=== PATIENT | male | born 2000 | race African-American/Black ===

== ENCOUNTER 2024-06-02 16:26 | Inpatient (IN) | payer OTHER ==
[2024-06-02 17:35] VITALS: BMI 21.1
[2024-06-02] MEDS ORDERED: POLYETHYLENE GLYCOL (HEALTHYLAX) 3350 17 GM PACKET PO PRN (18:54)
[2024-06-02] MEDS ORDERED: NALOXONE HCL 0.4 MG/ML VIAL IM PRN (18:54)
[2024-06-02] MEDS ORDERED: BISMUTH SUBSALICYLATE 524 MG/30 ML PO PRN (18:54)
[2024-06-02] MEDS ORDERED: NALOXONE (NARCAN) HCL 4 MG/0.1 ML SPRAY NS PRN (18:54)
[2024-06-02] MEDS ORDERED: MAG HYDROX/AL HYDROX/SIMETH 30 ML UNIT-DOSE CUP PO PRN (18:54)
[2024-06-02] MEDS ORDERED: BENZONATATE 200 MG CAPSULE PO PRN (18:54)
[2024-06-02] MEDS ORDERED: IBUPROFEN 600 MG TABLET (FP) PO PRN (18:54)
[2024-06-02] MEDS ORDERED: IBUPROFEN 400 MG TABLET (FP) PO PRN (18:54)
[2024-06-02] MEDS ORDERED: DICYCLOMINE HCL 10 MG CAPSULE PO PRN (18:54)
[2024-06-02] MEDS ORDERED: ACETAMINOPHEN 325 MG TABLET (FP) PO PRN (18:54)
[2024-06-02] MEDS ORDERED: MAGNESIUM HYDROX 2400MG/30ML ORAL SUSPENSION 30 ML CUP PO PRN (18:54)
[2024-06-02] MEDS ORDERED: P-EPHED 60MG/TRIPROLIDI 2.5MG TABLET PO PRN (18:54)
[2024-06-02] MEDS ORDERED: LOPERAMIDE HCL 2 MG CAPSULE PO PRN (18:54)
[2024-06-02] MEDS ORDERED: NICOTINE POLACRILEX 2 MG LOZENGE BC PRN (18:54)
[2024-06-02] MEDS ORDERED: NICOTINE POLACRILEX 2 MG GUM BUC PRN (18:54)
[2024-06-02] MEDS ORDERED: guaiFENesin 600 MG TABLET.ER (FP) PO PRN (18:54)
[2024-06-02] MEDS ORDERED: BENZOCAINE/MENTHOL (CHLORASEPTIC ) LOZENGE MM PRN (18:54)
[2024-06-02] MEDS: THIAMINE 100 MG TABLET PO SCH (21:51)
[2024-06-02] MEDS: MELATONIN 5 MG TABLETS PO SCH (22:06)
[2024-06-02] MEDS: METHOCARBAMOL 500 MG TABLET PO PRN (23:27)
[2024-06-02] MEDS: hydrOXYzine PAMOATE 25 MG CAPSULE (FP) PO PRN (23:28)
[2024-06-03 09:37] VITALS: RESP 18
[2024-06-03] MEDS: PRENATAL VITAMINS W/ FOLIC ACID TABLET (FP) PO SCH (09:56)
[2024-06-03] MEDS ORDERED: diazePAM 5 MG TABLET PO PRN (10:13)
[2024-06-03] MEDS: ONDANSETRON *ODT* 4 MG TABLET SL PRN (10:36)
[2024-06-03 11:03] LABS: HEMATOCRIT 41.9 % (35.4-49); HEMOGLOBIN 13.4 GM/dL (11.7-16.9); MCH 26.9 pg (25.7-33.7); MEAN CELL VOLUME 84.1 fl (80-96); MEAN PLT VOLUME 9.5 fl (7.5-11.1); PLATELET COUNT 242 10^3/uL (134-434); RBC 4.98 M/mm3 (4.00-5.60); RDW 13.4 % (11.9-15.9); WHITE BLOOD COUNT 5.3 K/mm3 (4.0-10.0)
[2024-06-03 11:05] LABS: POTASSIUM 3.9 mmol/L (3.5-5.1)
[2024-06-03 11:07] LABS: ALBUMIN 3.9 g/dl (3.4-5.0); CALCIUM 9.3 mg/dL (8.5-10.1)
[2024-06-03 11:08] LABS: BLOOD UREA NITROGEN 20.2 mg/dL (7-18)
[2024-06-03] MEDS ORDERED: cloNIDine HCL 0.1 MG TABLET PO PRN (11:11)
[2024-06-03] MEDS ORDERED: methaDONE HCL 10 MG TABLET (FOR DETOX USE ONLY) PO PRN (11:11)
[2024-06-03] MEDS: methaDONE HCL 10 MG TABLET (FOR DETOX USE ONLY) PO ONE (11:35)
[2024-06-03] MEDS: diazePAM 5 MG TABLET PO SCH (11:37)
[2024-06-03 14:02] VITALS: BP 144/96; PULSE 83; TEMP 97.8
[2024-06-03] MEDS ORDERED: OLANZapine 10 MG TABLET PO SCH (22:00)
[2024-06-05] MEDS ORDERED: diazePAM 5 MG TABLET PO SCH (06:00)
[2024-06-05] MEDS ORDERED: methaDONE HCL 10 MG TABLET (FOR DETOX USE ONLY) PO ONE (10:00)
[2024-06-06] MEDS ORDERED: diazePAM 5 MG TABLET PO SCH (06:00)
[2024-06-07] MEDS ORDERED: diazePAM 5 MG TABLET PO ONE (06:00)
[2024-06-07] MEDS ORDERED: methaDONE HCL 10 MG TABLET (FOR DETOX USE ONLY) PO ONE (10:00)
== END 2024-06-03 14:43 | disposition left against medical advice (07) | DRG 770 ==
LOC: YASAS 16:26 → Y3N 21:08
PROVIDERS: ADMIT Allergy & Immunology; ATTEND Surgery
PROC: HZ2ZZZZ Detoxification Services for Substance Abuse Treatment (ICD-10-PCS; principal; 2024-06-02)
DX: F11.23 Opioid dependence with withdrawal (principal); F13.230 Sedative, hypnotic or anxiolytic dependence with withdrawal, uncomplicated; F17.210 Nicotine dependence, cigarettes, uncomplicated; F20.9 Schizophrenia, unspecified; F19.24 Other psychoactive substance dependence with psychoactive substance-induced mood disorder; F32.A Depression, unspecified
CPT/HCPCS: 36415; 80053; 85027; 86780; 93005; 93010; Q0162

== ENCOUNTER 2024-12-15 17:09 | Inpatient (IN) | payer OTHER ==
[2024-12-15] MEDS ORDERED: MAG HYDROX/AL HYDROX/SIMETH 30 ML UNIT-DOSE CUP PO PRN (18:47)
[2024-12-15] MEDS ORDERED: DICYCLOMINE HCL 10 MG CAPSULE PO PRN (18:47)
[2024-12-15] MEDS ORDERED: MAGNESIUM HYDROX 2400MG/30ML ORAL SUSPENSION 30 ML CUP PO PRN (18:47)
[2024-12-15] MEDS ORDERED: ACETAMINOPHEN 325 MG TABLET (FP) PO PRN (18:47)
[2024-12-15] MEDS ORDERED: IBUPROFEN 400 MG TABLET (FP) PO PRN (18:47)
[2024-12-15] MEDS ORDERED: POLYETHYLENE GLYCOL (HEALTHYLAX) 3350 17 GM PACKET PO PRN (18:47)
[2024-12-15] MEDS ORDERED: guaiFENesin 600 MG TABLET.ER (FP) PO PRN (18:47)
[2024-12-15] MEDS ORDERED: BENZOCAINE/MENTHOL (CHLORASEPTIC ) LOZENGE MM PRN (18:47)
[2024-12-15] MEDS ORDERED: NICOTINE POLACRILEX 2 MG GUM BUC PRN (18:47)
[2024-12-15] MEDS ORDERED: BISMUTH SUBSALICYLATE 524 MG/30 ML PO PRN (18:47)
[2024-12-15] MEDS ORDERED: BENZONATATE 200 MG CAPSULE PO PRN (18:47)
[2024-12-15] MEDS ORDERED: NALOXONE (NARCAN) HCL 4 MG/0.1 ML SPRAY NS PRN (18:47)
[2024-12-15] MEDS ORDERED: LOPERAMIDE HCL 2 MG CAPSULE PO PRN (18:47)
[2024-12-15] MEDS: BACITRACIN 0.9 GM PACKET TP SCH (21:06)
[2024-12-15] MEDS: MELATONIN 5 MG TABLETS PO SCH (22:02)
[2024-12-15] MEDS: THIAMINE 100 MG TABLET PO SCH (22:03)
[2024-12-15] MEDS: ONDANSETRON *ODT* 4 MG TABLET SL PRN (22:03)
[2024-12-15] MEDS: hydrOXYzine PAMOATE 25 MG CAPSULE (FP) PO PRN (22:04)
[2024-12-16] MEDS: PRENATAL VITAMINS W/ FOLIC ACID TABLET (FP) PO SCH (09:49)
[2024-12-16] MEDS: IBUPROFEN 600 MG TABLET (FP) PO PRN (09:49)
[2024-12-16 10:47] LABS: MCHC 32.3 g/dl (32.3-36.5); MEAN CELL VOLUME 85.6 fl (79.0-92.2); MEAN PLT VOLUME 11.9 fl (9.4-12.4); RDW 13.3 % (11.9-15.3)
[2024-12-16 12:50] VITALS: RESP 16
[2024-12-16 13:36] LABS: ALK PHOS 75 U/L (45-117); CO2 28 mmol/L (21-32); GLUCOSE,RANDOM 91 mg/dL (74-106); SGPT/ALT 15 U/L (13-61)
[2024-12-16 13:37] LABS: CREATININE 0.9 mg/dL (0.55-1.3); SGOT/AST 12 U/L (15-37)
[2024-12-16 13:39] LABS: TOT PROT 5.7 g/dl (6.4-8.2)
[2024-12-16] MEDS: METHOCARBAMOL 500 MG TABLET PO PRN (22:27)
[2024-12-16] MEDS: SUVOREXANT 10 MG TABLET PO PRN (22:27)
[2024-12-17 06:15] VITALS: BP 121/72; PULSE 97; TEMP 98.1
[2024-12-17 15:26] LABS: HIV INTERPRETATION NEGATIVE (NEGATIVE)
== END 2024-12-17 08:52 | disposition home or self-care (01) | DRG 773 ==
LOC: YASAS 17:09 → Y6N 21:07
PROVIDERS: ADMIT Neuromusculoskeletal Medicine & OMM; ATTEND Allergy & Immunology
PROC: HZ2ZZZZ Detoxification Services for Substance Abuse Treatment (ICD-10-PCS; principal; 2024-12-15)
DX: F11.20 Opioid dependence, uncomplicated (principal); F10.20 Alcohol dependence, uncomplicated; F13.20 Sedative, hypnotic or anxiolytic dependence, uncomplicated; F17.210 Nicotine dependence, cigarettes, uncomplicated; F19.282 Other psychoactive substance dependence with psychoactive substance-induced sleep disorder; F19.280 Other psychoactive substance dependence with psychoactive substance-induced anxiety disorder; F19.24 Other psychoactive substance dependence with psychoactive substance-induced mood disorder; F20.9 Schizophrenia, unspecified; F41.9 Anxiety disorder, unspecified; J45.901 Unspecified asthma with (acute) exacerbation
CPT/HCPCS: 36415; 80053; 80305; 80307; 85027; 86780; 87389; 93005; 93010; Q0162